=== PATIENT | male | born 1940 | race Caucasian/White ===

== ENCOUNTER 2017-06-22 10:40 | Inpatient (IN) | payer OTHER ==
[~2017-06-22] VITALS: Ht 177.8 cm; Wt 114.0 kg
[2017-06-22 11:47] LABS: EOSINOPHIL (%) 0 % (0-5); IMMATURE GRANULOCYTE (%) 0.7 % (0.0-0.7); IMMATURE GRANULOCYTE COUNT 0.1 K/uL; INSTRUMENT ABS NEUTROPHIL CT 10.7 K/uL; LYMPHOCYTE COUNT 0.6 K/uL (1.0-2.8); MCH 31.1 PG (29.0-34.0); MCHC 32.6 G/DL (30.0-36.0); MCV 95.5 FL (86-99); MEAN PLAT.VOLUME 10.3 uM^3 (9.0-12.4); MONOCYTE (%) 5.8 % (3-12); MONOCYTE COUNT 0.7 K/uL (0-0.8); NEUTROPHIL (%) 88.5 % (45-76); NEUTROPHIL COUNT 10.7 K/uL (1.8-6.4); PLATELET COUNT 161 K/uL (156-360); RBC DIS.WIDTH-SD 46.1 % (39-53); RED BLOOD COUNT 4.92 M/uL (4.00-5.50); WHITE BLOOD COUNT 12.1 K/uL (4.1-10.2)
[2017-06-22 12:04] LABS: CHLORIDE 100 mEq/L (99-109)
[2017-06-22 12:05] LABS: SODIUM 139 mEq/L (136-147)
[2017-06-22 12:06] LABS: GLUCOSE 215 mg/dL (70-99)
[2017-06-22 12:08] LABS: ANION GAP 12 MEQ/L (2-14)
[2017-06-22 12:09] LABS: TROP-I INTERPRETATION NEGATIVE; TROPONIN-I 0.02 ng/mL (0.0-0.30)
[2017-06-22 12:10] LABS: GFR ESTIMATE (CALCULATED) > 59 mL/min/
[2017-06-22 12:11] LABS: UREA NITROGEN (BUN) 17 mg/dL (9-23)
[2017-06-22] MEDS ORDERED: LOPRESSOR50 MG PO (14:16)
[2017-06-22] MEDS ORDERED: PIOGLITAZONE HC45 MG PO (14:16)
[2017-06-22] MEDS ORDERED: COMBIGAN O20 DROP/5 BOTH EYES (14:17)
[2017-06-22] MEDS ORDERED: MULTIVITAMIN1 EAC2 PO (14:17)
[2017-06-22] MEDS ORDERED: VITAMIN C1000 MG PO (14:18)
[2017-06-22] MEDS ORDERED: PRESERVISION A1 EAC2 PO (14:18)
[2017-06-22] MEDS ORDERED: VITAMIN D32000 UNI1 PO (14:19)
[2017-06-22 15:34] LABS: POINT-OF-CARE METER ID UU13113774
[2017-06-22 17:00] VITALS: BP 156/79
[2017-06-22 22:07] LABS: POINT-OF-CARE METER ID UU13113725
[2017-06-23 01:51] VITALS: BP 142/80
[2017-06-23 06:08] LABS: POINT-OF-CARE METER ID UU13113774
[2017-06-23 06:45] VITALS: BP 146/68
[2017-06-23 08:00] LABS: Estimated Average Glucose 192 mg/dL (70-123); HEMOGLOBIN A1c (GLYCOHEMOGLOB) 8.3 % HGB (Below 5.7)
[2017-06-23 11:22] LABS: POINT-OF-CARE METER ID UU13113725
[2017-06-23 15:00] VITALS: BP 138/72
[2017-06-23 16:47] LABS: POINT-OF-CARE METER ID UU13113725
[2017-06-23 22:17] VITALS: BP 144/70
[2017-06-23 22:18] LABS: POINT-OF-CARE METER ID UU13113774
[2017-06-24 00:23] VITALS: BP 139/73
[2017-06-24 06:20] LABS: POINT-OF-CARE METER ID UU13113774
[2017-06-24 07:29] VITALS: BP 160/78
[2017-06-24 07:59] VITALS: BP 165/84
[2017-06-24 11:31] LABS: POINT-OF-CARE METER ID UU13113725
[2017-06-24 15:38] LABS: POINT-OF-CARE METER ID UU13113725
[2017-06-24 15:56] VITALS: BP 157/74
[2017-06-24 21:16] LABS: POINT-OF-CARE METER ID UU13113725
[2017-06-25] VITALS: BP 148/70
[2017-06-25 06:24] LABS: POINT-OF-CARE METER ID UU13113725
[2017-06-25 07:13] VITALS: BP 138/78
[2017-06-25 10:50] LABS: POINT-OF-CARE METER ID UU13113725
[2017-06-25 11:28] LABS: ALKALINE PHOSPHATASE 65 IU/L (3-129); DIRECT BILIRUBIN 0.2 mg/dL (0.0-0.3); LIPASE 4 U/L (1.0-51.0); TOTAL BILIRUBIN 0.4 MG/DL (0.0-1.0)
[2017-06-25 16:25] LABS: POINT-OF-CARE METER ID UU13113725
[2017-06-25 16:49] VITALS: BP 134/74
[2017-06-25 21:39] LABS: POINT-OF-CARE METER ID UU13113725
[2017-06-26 00:08] VITALS: BP 142/86
[2017-06-26 05:59] LABS: POINT-OF-CARE METER ID UU13113725
[2017-06-26 06:50] VITALS: BP 170/81
[2017-06-26 11:39] LABS: POINT-OF-CARE METER ID UU13113725
[2017-06-26 15:00] VITALS: BP 157/77
[2017-06-26 16:29] LABS: POINT-OF-CARE METER ID UU13113725
[2017-06-26 21:37] LABS: POINT-OF-CARE METER ID UU13113774
[2017-06-27 00:47] VITALS: BP 142/70
[2017-06-27 01:47] LABS: POINT-OF-CARE METER ID UU13113725
[2017-06-27 06:09] LABS: POINT-OF-CARE METER ID UU13113725
[2017-06-27 06:24] LABS: EOSINOPHIL (%) 0.8 % (0-5); EOSINOPHIL COUNT 0.1 K/uL (0-0.3); HEMATOCRIT 46.9 % (38.0-50.0); IMMATURE GRANULOCYTE (%) 2.2 % (0.0-0.7); IMMATURE GRANULOCYTE COUNT 0.2 K/uL; INSTRUMENT ABS NEUTROPHIL CT 6.6 K/uL; LYMPHOCYTE COUNT 1.1 K/uL (1.0-2.8); MCH 30.5 PG (29.0-34.0); MCV 95.3 FL (86-99); MONOCYTE (%) 11.5 % (3-12); MONOCYTE COUNT 1.1 K/uL (0-0.8); NEUTROPHIL (%) 72.6 % (45-76); NEUTROPHIL COUNT 6.6 K/uL (1.8-6.4); RBC DIS.WIDTH-CV 12.8 % (11.8-14.6); RBC DIS.WIDTH-SD 45.2 % (39-53); RED BLOOD COUNT 4.92 M/uL (4.00-5.50); WHITE BLOOD COUNT 9.1 K/uL (4.1-10.2)
[2017-06-27 06:30] LABS: PLATELET COUNT 249 K/uL (156-360)
[2017-06-27 07:55] VITALS: BP 176/86
[2017-06-27 11:56] LABS: POINT-OF-CARE METER ID UU13113774
[2017-06-27 13:21] LABS: INTER. NORMALIZED RATIO 1.2; PROTHROMBIN TIME 14.2 SEC (10.2-12.9)
[2017-06-27 13:24] LABS: PTT 32.9 SEC (25-37)
[2017-06-27 15:49] VITALS: BP 165/74
[2017-06-27 17:34] LABS: TYPE OF FLUID PLEURAL
[2017-06-27 18:13] LABS: POINT-OF-CARE METER ID UU13113774
[2017-06-27 18:20] LABS: BODY FLUID EOSINOPHILS 0 % (0-25); BODY FLUID RBC'S 1000 /MM^3 (0-100); BODY FLUID WBC'S 694 /MM^3 (0-500); COMMENT FEW MACROPHAGES SEEN; MONONUCLEAR WBC'S 6 %; POLYNUCLEAR WBC'S 94 % (0-25)
[2017-06-27 18:24] LABS: BODY FLUID LDH 1594 IU/L; BODY FLUID PROTEIN 4.1 G/DL
[2017-06-27 21:21] LABS: POINT-OF-CARE METER ID UU13113774
[2017-06-28 00:24] VITALS: BP 144/73
[2017-06-28 06:24] LABS: POINT-OF-CARE METER ID UU13113774
[2017-06-28 06:37] LABS: ANION GAP 9 MEQ/L (2-14); CHLORIDE 93 MEQ/L (99-109); GFR ESTIMATE (CALCULATED) > 59 mL/min/; GLUCOSE 225 mg/dL (70-99); POTASSIUM 4.1 MEQ/L (3.7-5.4); SAMPLE HEMOLYSIS CHECK 0; SAMPLE ICTERIC CHECK 0; SAMPLE LIPEMIA CHECK 0; SODIUM 139 MEQ/L (136-147); UREA NITROGEN (BUN) 18 mg/dL (9-23)
[2017-06-28 07:17] LABS: TROP-I INTERPRETATION NEGATIVE; TROPONIN-I 0.03 ng/mL (0.0-0.30)
[2017-06-28 08:04] VITALS: BP 151/7; BP 151/70
[2017-06-28 11:19] LABS: POINT-OF-CARE METER ID UU13113774
[2017-06-28 15:51] LABS: POINT-OF-CARE METER ID UU13113725
[2017-06-28 16:00] VITALS: BP 148/71
[2017-06-28 21:23] LABS: POINT-OF-CARE METER ID UU13113774
[2017-06-28 23:40] VITALS: BP 150/72
[2017-06-29 04:00] VITALS: BP 132/78
[2017-06-29 06:57] LABS: POINT-OF-CARE METER ID UU13113725; POINT-OF-CARE USER ID AHSUCEG
[2017-06-29 07:31] VITALS: BP 175/80
[2017-06-29 10:58] LABS: POINT-OF-CARE METER ID UU13113725
[2017-06-29 12:15] LABS: POINT-OF-CARE METER ID UU13113725
[2017-06-29 16:15] LABS: POINT-OF-CARE METER ID UU13113725
[2017-06-29 16:26] VITALS: BP 144/76
[2017-06-29 21:52] LABS: POINT-OF-CARE METER ID UU13113774
[2017-06-30 00:03] VITALS: BP 137/71
[2017-06-30 06:12] LABS: POINT-OF-CARE METER ID UU13113725
[2017-06-30 06:45] LABS: ALKALINE PHOSPHATASE 56 IU/L (3-129); ANION GAP 8 MEQ/L (2-14); CHLORIDE 93 MEQ/L (99-109); GFR ESTIMATE (CALCULATED) > 59 mL/min/; GLUCOSE 196 mg/dL (70-99); POTASSIUM 3.8 MEQ/L (3.7-5.4); SAMPLE HEMOLYSIS CHECK 0; SAMPLE ICTERIC CHECK 0; SAMPLE LIPEMIA CHECK 0; SODIUM 140 MEQ/L (136-147); TOTAL BILIRUBIN 0.4 MG/DL (0.0-1.0); UREA NITROGEN (BUN) 23 mg/dL (9-23)
[2017-06-30 07:20] VITALS: BP 137/77
[2017-06-30 11:01] LABS: POINT-OF-CARE METER ID UU13113725
[2017-06-30 14:57] VITALS: BP 143/73
[2017-06-30 16:15] LABS: POINT-OF-CARE METER ID UU13113725
[2017-06-30 21:05] LABS: POINT-OF-CARE METER ID UU13113774
[2017-06-30 23:32] VITALS: BP 133/68
[2017-07-01 06:10] VITALS: BP 127/63
[2017-07-01 07:18] LABS: ANION GAP 13 MEQ/L (2-14); CHLORIDE 88 MEQ/L (99-109); GFR ESTIMATE (CALCULATED) > 59 mL/min/; GLUCOSE 187 mg/dL (70-99); POTASSIUM 3.8 MEQ/L (3.7-5.4); SAMPLE HEMOLYSIS CHECK 0; SAMPLE ICTERIC CHECK 0; SAMPLE LIPEMIA CHECK 0; SODIUM 139 MEQ/L (136-147); UREA NITROGEN (BUN) 24 mg/dL (9-23)
[2017-07-01 10:07] LABS: POINT-OF-CARE METER ID UU13113675
[2017-07-01 11:45] VITALS: BP 138/69
[2017-07-01 11:53] LABS: POINT-OF-CARE METER ID UU13113725
[2017-07-01 15:00] VITALS: BP 103/56
[2017-07-01 16:21] LABS: POINT-OF-CARE METER ID UU13113725
[2017-07-01 21:51] LABS: POINT-OF-CARE METER ID UU13113774
[2017-07-02 00:14] VITALS: BP 129/67
[2017-07-02 06:10] LABS: HEMATOCRIT 44.8 % (38.0-50.0); MCH 31.1 PG (29.0-34.0); MCHC 31.7 G/DL (30.0-36.0); PLATELET COUNT 278 K/uL (156-360); RBC DIS.WIDTH-SD 46.7 % (39-53); RED BLOOD COUNT 4.57 M/uL (4.00-5.50); WHITE BLOOD COUNT 13.2 K/uL (4.1-10.2)
[2017-07-02 06:22] LABS: ANION GAP 8 MEQ/L (2-14); CHLORIDE 89 MEQ/L (99-109); GFR ESTIMATE (CALCULATED) > 59 mL/min/; GLUCOSE 179 mg/dL (70-99); POTASSIUM 3.8 MEQ/L (3.7-5.4); SAMPLE HEMOLYSIS CHECK 0; SAMPLE ICTERIC CHECK 0; SAMPLE LIPEMIA CHECK 0; SODIUM 136 MEQ/L (136-147); UREA NITROGEN (BUN) 25 mg/dL (9-23)
[2017-07-02 07:15] VITALS: BP 132/62
[2017-07-02 07:25] LABS: POINT-OF-CARE METER ID UU13113774
[2017-07-02 11:24] LABS: POINT-OF-CARE METER ID UU13113774
[2017-07-02 14:27] LABS: POINT-OF-CARE METER ID UU13113774
[2017-07-02 15:00] VITALS: BP 150/74
[2017-07-02 16:32] LABS: POINT-OF-CARE METER ID UU13113774
[2017-07-02 21:29] LABS: POINT-OF-CARE METER ID UU13113725
[2017-07-02 23:36] VITALS: BP 138/66
[2017-07-03 06:13] LABS: POINT-OF-CARE METER ID UU13113725
[2017-07-03 07:05] VITALS: BP 145/70
[2017-07-03 10:52] LABS: POINT-OF-CARE METER ID UU13113774
[2017-07-03 16:26] LABS: POINT-OF-CARE METER ID UU13113774
[2017-07-03 16:32] VITALS: BP 131/60
[2017-07-03 21:47] VITALS: BP 164/74
[2017-07-03 22:23] LABS: POINT-OF-CARE METER ID UU13113774
[2017-07-04 00:18] VITALS: BP 143/67
[2017-07-04 06:09] LABS: HEMATOCRIT 40.6 % (38.0-50.0); MCH 31.2 PG (29.0-34.0); MCHC 32.3 G/DL (30.0-36.0); MCV 96.7 FL (86-99); MEAN PLAT.VOLUME 9.8 uM^3 (9.0-12.4); PLATELET COUNT 331 K/uL (156-360); RBC DIS.WIDTH-CV 12.7 % (11.8-14.6); RBC DIS.WIDTH-SD 44.7 % (39-53); WHITE BLOOD COUNT 10.4 K/uL (4.1-10.2)
[2017-07-04 06:28] LABS: POINT-OF-CARE METER ID UU13113725
[2017-07-04 07:18] VITALS: BP 145/67
[2017-07-04 10:55] LABS: POINT-OF-CARE METER ID UU13113725
[2017-07-04 15:56] LABS: POINT-OF-CARE METER ID UU13113774
[2017-07-04 16:51] VITALS: BP 144/68
[2017-07-04 21:11] LABS: POINT-OF-CARE METER ID UU13113725
[2017-07-04 21:27] LABS: POINT-OF-CARE METER ID UU13113725
[2017-07-04 22:39] VITALS: BP 118/59
[2017-07-05 05:57] LABS: POINT-OF-CARE METER ID UU13113725
[2017-07-05 07:32] VITALS: BP 165/80
[2017-07-05 11:32] LABS: POINT-OF-CARE METER ID UU13113725
[2017-07-05 16:05] VITALS: BP 148/70
[2017-07-05 16:11] LABS: POINT-OF-CARE METER ID UU13113725
[2017-07-05 20:51] LABS: POINT-OF-CARE METER ID UU13113774
[2017-07-05 23:19] VITALS: BP 116/55
[2017-07-06 05:42] LABS: POINT-OF-CARE METER ID UU13113774
[2017-07-06 07:30] VITALS: BP 125/60
[2017-07-06 10:37] LABS: POINT-OF-CARE METER ID UU13113774
[2017-07-06 15:48] LABS: POINT-OF-CARE METER ID UU13113774
[2017-07-06 16:52] VITALS: BP 126/66
[2017-07-06 21:24] LABS: POINT-OF-CARE METER ID UU13113774
[2017-07-07 00:24] VITALS: BP 143/69
[2017-07-07 05:46] LABS: POINT-OF-CARE METER ID UU13113725
[2017-07-07 07:09] VITALS: BP 138/70
[2017-07-07 11:00] LABS: POINT-OF-CARE METER ID UU13113774
[2017-07-07 15:45] VITALS: BP 136/65
[2017-07-07 16:12] LABS: POINT-OF-CARE METER ID UU13113725
[2017-07-07 21:18] LABS: POINT-OF-CARE METER ID UU13113725
[2017-07-08 00:15] VITALS: BP 137/66
[2017-07-08 06:17] LABS: POINT-OF-CARE METER ID UU13113725
[2017-07-08 06:59] VITALS: BP 143/66
[2017-07-08 10:54] LABS: POINT-OF-CARE METER ID UU13113725
== END 2017-07-08 15:13 | disposition home health service (06) | DRG 194 ==
LOC: DELPENDDIS → EME 10:40 → EDOF 12:35 → 5EAST 12:35 → ENRESERV 12:48 → 5EAST 15:08 → ENPENDDIS 06-26 → ENRESERV 07-01 06:52 → CANRESERV 07-01 08:49 → 5EAST 07-01 10:11 → ENPENDDIS 07-08 → 5EAST 07-08 15:13
PROVIDERS: Emergency Medicine; Internal Medicine; Internal Medicine Cardiovascular Disease; Internal Medicine Pulmonary Disease; Physician Assistant Medical; Physician Assistant Surgical; Radiology Diagnostic Radiology; Surgery; Thoracic Surgery (Cardiothoracic Vascular Surgery)
PROC: 0BCN4ZZ Extirpation of Matter from Right Pleura, Percutaneous Endoscopic Approach (ICD-10-PCS; principal; 2017-07-01)
PROC: 0W993ZZ Drainage of Right Pleural Cavity, Percutaneous Approach (ICD-10-PCS; 2017-07-01)
DX: J15.4 Pneumonia due to other streptococci (principal); R78.81 Bacteremia; J98.11 Atelectasis; J90 Pleural effusion, not elsewhere classified; J44.0 Chronic obstructive pulmonary disease with (acute) lower respiratory infection; K80.20 Calculus of gallbladder without cholecystitis without obstruction; K42.9 Umbilical hernia without obstruction or gangrene; E11.65 Type 2 diabetes mellitus with hyperglycemia; I10 Essential (primary) hypertension; H40.9 Unspecified glaucoma; Z88.0 Allergy status to penicillin; E66.01 Morbid (severe) obesity due to excess calories; I45.10 Unspecified right bundle-branch block; R09.02 Hypoxemia; E78.5 Hyperlipidemia, unspecified; F17.210 Nicotine dependence, cigarettes, uncomplicated; R09.1 Pleurisy; J93.9 Pneumothorax, unspecified; Z87.01 Personal history of pneumonia (recurrent); Z90.49 Acquired absence of other specified parts of digestive tract
CPT/HCPCS: 71010; 71020; 71260; 74150; 76942; 80048; 80053; 80076; 82945; 82948; 83036; 83605; 83615 91; 83690; 84157; 84484; 85025; 85027; 85610; 85730; 87040; 87070; 87075; 87077; 87102; 87116; 87181; 87205; 87206; 87801; 88108; 88305; 89051; 93005; 93306; 94010; 94640; 94640 76; 94667; 94668; 94760; 94799; 99202; 99281; 99285; J0456; J0696; J1644; J1815; J1885; J1940; J2250; J2405; J2710; J2930; J3010; J7040; J7050; J7120